=== PATIENT | female | born 1970 | race Caucasian/White ===

== ENCOUNTER 2023-04-01 06:00 | Emergency (ER) | payer MEDICAID ==
[2023-04-01 06:59] LABS: BASOPHILS ABSOLUTE AUTO 0.05 10^3/uL (0.00-0.10); BASOPHILS PERCENT AUTO 0.5 % (0.0-1.0); EOSINOPHILS ABSOLUTE AUTO 0.16 10^3/uL (0.10-0.30); EOSINOPHILS PERCENT AUTO 1.7 % (1.0-3.0); HEMATOCRIT 51.7 % (37.0-47.0); HEMOGLOBIN 16.9 g/dL (12.0-16.0); IMMATURE GRAN ABSOLUTE AUTO 0.02 10^3/uL (0.00-0.50); IMMATURE GRAN PERCENT AUTO 0.2 % (0.0-5.0); LYMPHOCYTES ABSOLUTE AUTO 0.95 10^3/uL (1.00-4.00); LYMPHOCYTES PERCENT AUTO 9.9 % (20.0-40.0); MEAN CORPUSCULAR HEMOGLOBIN 33.1 pg (27.0-31.0); MEAN CORPUSCULAR HGB CONC 32.7 g/dL (32.0-36.0); MEAN CORPUSCULAR VOLUME 101.4 fL (82.0-92.0); MEAN PLATELET VOLUME 9.7 fL (7.4-10.4); MONOCYTES ABSOLUTE AUTO 1.01 10^3/uL (0.10-0.80); MONOCYTES PERCENT AUTO 10.6 % (2.0-8.0); NEUTROPHILS ABSOLUTE AUTO 7.36 10^3/uL (2.50-7.00); NEUTROPHILS PERCENT AUTO 77.1 % (50.0-70.0); PLATELET COUNT,PLT 256 10^3/uL (150-400); RED CELL DISTRIBUTION WIDTH 13.2 % (11.5-14.5); WHITE BLOOD CELL COUNT,WBC 9.55 10^3/uL (5.00-10.00)
[2023-04-01 07:09] LABS: ALBUMIN 3.53 g/dL (3.40-5.00); BILIRUBIN TOTAL 0.4 mg/dL (0.2-1.0); CALCIUM 8.6 mg/dL (8.7-10.3); CARBON DIOXIDE,CO2 33.7 mmol/L (21.0-32.0); EST CRCL DRUG DOSING (CG) 2.45 mL/min; POTASSIUM,K 3.7 mmol/L (3.5-5.1); PROTEIN TOTAL,TP 7.2 g/dL (6.4-8.2)
[2023-04-01] MEDS: methylPREDNISolone Sodium Succinate 125 MG/2 ML SDV IM ONE (07:12)
[2023-04-01] MEDS: Albuterol/Ipratropium 3.0-0.5 MG/3 ML Neb Soln NEB ONE (07:13)
[2023-04-01] MEDS: Water For Injection, Sterile 20 ML ONE (07:45)
== END 2023-04-01 07:42 | disposition home or self-care (01) ==
LOC: SUPCPDRO 06:00 → KA.ED 06:00 → MERGE 06:00 → KA.ED 07:42
DX: J44.1 Chronic obstructive pulmonary disease with (acute) exacerbation (principal); Z88.6 Allergy status to analgesic agent; Z88.5 Allergy status to narcotic agent; Z91.012 Allergy to eggs; Z88.8 Allergy status to other drugs, medicaments and biological substances
CPT/HCPCS: 36415; 71045; 80053; 83880; 84484; 85025; 93005; 93010; 94640; 96372; 99283; 99285; J2930; J7620-GY